=== PATIENT | female | born 1995 | race Hispanic/Latino ===

== ENCOUNTER 2024-11-17 02:14 | Emergency (ER) | payer SELFPAY ==
[~2024-11-17] VITALS: Ht 160 cm; Wt 90.7 kg
[2024-11-17] MEDS: 0.9%NACL 1000ML 1,000 ML IV ONE (02:52)
[2024-11-17 03:02] LABS: IMMATURE GRANULOCYTE ABSOLUTE 0.09 K/uL (0-1); NUCLEATED RED BLOOD CELLS 0.0 % (0.0-0.19); PLATELET COUNT (AUTO) 232 K/uL (130-400); RED BLOOD CELL COUNT(AUTO) 4.23 MIL/uL (4.00-5.50); RED CELL DISTRIBUTION WIDTH 18.8 % (11.0-15.5); WHITE BLOOD COUNT (AUTO) 14.2 K/uL (4.8-10.8)
[2024-11-17 03:08] LABS: CREATININE 0.7 mg/dL (0.5-1.0); GLOMERULAR FILTR. RATE CALC 120.0 mL/min (>90); GLUCOSE,RANDOM 119.0 mg/dL (70-105); SODIUM SERUM 138.0 mmol/L (136-145); UREA NITROGEN, BLOOD 7.0 mg/dL (7-18)
[2024-11-17 03:19] LABS: HCG,QUANTITATIVE 0.0 mIU/mL (0-5)
[2024-11-17 03:59] LABS: ADD UA MICROSCOPIC YES; APPEARANCE,URINE CLOUDY (CLEAR); GLUCOSE, URINE (UA) NEGATIVE (NEGATIVE); LEUKOCYTE ESTERASE ,URINE 500 Leu/uL (NEGATIVE); NITRATE,URINE NEGATIVE (NEGATIVE); OCCULT BLOOD,URINE MODERATE (NEGATIVE)
[2024-11-17 04:03] LABS: SQUAMOUS EPITHELIAL CELL,UR MANY /HPF (0-2)
[2024-11-17] MEDS ORDERED: NITR100C4 PO (04:12)
--- NOTE | 2024-11-17 04:13 | ERN ---
ED Note History of Present Illness Stated Complaint: ABD PAIN Chief Complaint: Abdominal Pain Time Seen by MD: 02:23 Dictation: This is a 28-year-old obese female who presented to the emergency room with complaints of epigastric pain nausea and vomitings and diarrhea for the past 2 d ays. She stated that she had a cholecystectomy in the past. No other family members are sick in the house. She has been eating food made by her grandmother. No hematemesis or melena. No fever chills or rigors periods Temperature 97.9 pulse 82 respirations 20 blood pressure 120/98 with a pulse oximetry of 99% on room air Allergies: Coded Allergies: No Known Allergies (Unverified Allergy, Unknown, 11/17/24) Home Meds Active Scripts Nitrofurantoin Monohyd/M-Cryst (Macrobid 100 mg Capsule) 100 Mg Capsule, 1 CAP PO BID for 7 Days, #14 CAP 0 Refills Prov:VALE NARVAEZ MD 11/17/24 Past Medical History Past Medical History: No Pertinent History Surgical History: Cholecystectomy Family History: Negative Social History: Negative RN Note Reviewed/Agreed w/PFSH: Yes Review of System Dictation Constitutional: Negative for fever,chills, and weight loss Eyes: Negative for injury, pain,redness, and discharge ENT: Negative for injury,pain or swelling Cardiovascular: Negative for chest pain, palpitations, and edema Respiratory: Negative for shortness of breath, cough, and wheezing, Abdomen/GI: Positive for epigastric abdominal pain, nausea, vomiting, diarrhea, denied constipation Back: Negative for injury and pain : Negative for injury, bleeding and discharge MS/Extremity: Negative for injury and deformity Skin: Negative for rash, and discoloration Neuro: Negative for headache, weakness, numbness, tingling, and seizure Psych: Negative for suicide ideation, homicidal ideation, and hallucinations Initial Vital Sign VS Vital Signs Date Time Temp Pulse Resp B/P (MAP) Pulse Ox O2 Delivery O2 Flow Rate FiO2 11/17/24 02:15 97.9 82 20 120/98 99 Room Air 11/17/24 03:04 0 21 Physical Exam Dictation General: awake, alert, NAD morbidly obese Head/Face: Normocephalic, atraumatic Eyes: PERRL, EOMI, vision at baseline ENT: oral cavity clear, TMs clear, no signs of infection Neck: Trachea midline, supple, no nuchal rigidity Cardiovascular: RRR, normal S1/S2, No MRGs, no JVD Respiratory: CTAB, no respiratory distress, No rales or wheezes Abdomen: Soft, tenderness to palpation in the epigastric area, non-distended, normal bowel sounds, no guarding or rebound. Skin: Warm, dry, normal turgor, no rash MS/Extremity: Pulses equal, no cyanosis, neurovascular intact, FROM Neuro: COAx4, GCS 15, strength 5/5, CN 2-12 intact, normal cerebellar exam, normal gait, Psych: Normal behavior, mood, and affect normal Extremities-trace edema without any palpable cords, Homans sign is negative Results (Laboratory/Radiology) Laboratory/Radiology Laboratory Tests Test 11/17/24 02:45 11/17/24 03:51 White Blood Count 14.2 K/uL (4.8-10.8) H Red Blood Count 4.23 MIL/uL (4.00-5.50) Hemoglobin 11.3 g/dL (12.0-16.0) L Hematocrit 35.5 % (36-48) L Mean Corpuscular Volume 83.9 fL (79-99) Mean Corpuscular Hemoglobin 26.7 pg (27.0-33.0) L Mean Corpuscular Hemoglobin Concent 31.8 g/dL (32.0-36.0) L Red Cell Distribution Width 18.8 % (11.0-15.5) H Platelet Count 232 K/uL (130-400) Mean Platelet Volume 10.0 fL (7.5-10.5) Immature Granulocyte % (Auto) 0.6 % (0-1) Neutrophils (%) (Auto) 78.9 % (40.0-77.0) H Lymphocytes (%) (Auto) 14.1 % (21.0-51.0) L Monocytes (%) (Auto) 4.9 % (3.0-13.0) Eosinophils (%) (Auto) 1.3 % (0.0-8.0) Basophils (%) (Auto) 0.2 % (0.0-5.0) Neutrophils # (Auto) 11.2 K/uL (1.8-7.7) H Lymphocytes # (Auto) 2.0 K/uL (1.0-4.8) Monocytes # (Auto) 0.7 K/uL (0.1-1.0) Eosinophils # (Auto) 0.18 K/uL (0.00-0.70) Basophils # (Auto) 0.03 K/uL (0.00-0.20) Absolute Immature Granulocyte (auto 0.09 K/uL (0-1) Nucleated Red Blood Cells 0.0 % (0.0-0.19) Red Blood Cell Morphology See comments Sodium Level 138 mmol/L (136-145) Potassium Level 3.3 mmol/L (3.5-5.1) L Chloride Level 103 mmol/L (101-111) Carbon Dioxide Level 23 mmol/L (21-32) Blood Urea Nitrogen 7 mg/dL (7-18) Creatinine 0.7 mg/dL (0.5-1.0) Glomerular Filtration Rate Calc 120 mL/min (>90) Random Glucose 119 mg/dL (70-105) H Total Calcium 8.4 mg/dL (8.5-10.1) L Lipase 27 U/L (16-77) Human Chorionic Gonadotropin, Quant 0 mIU/mL (0-5) Urine Color LIGHT-YELLOW (YELLOW) Urine Appearance CLOUDY (CLEAR) H Urine pH 6.0 (5.0-8.0) Urine Specific [place] 1.024 (1.001-1.031) Urine Protein NEGATIVE mg/dL (NEGATIVE) Urine Glucose (UA) NEGATIVE mg/dL (NEGATIVE) Urine Ketones NEGATIVE mg/dL (NEGATIVE) Urine Occult Blood MODERATE (NEGATIVE) H Urine Nitrate NEGATIVE (NEGATIVE) Urine Bilirubin NEGATIVE mg/dL (NEGATIVE) Urine Urobilinogen 0.2 mg/dL (0.2-1.0) Urine Leukocyte Esterase 500 Mesfin/uL (NEGATIVE) H Urine RBC 11-25 /HPF (0-1) H Urine WBC 11-25 /HPF (0-1) H Urine Squamous Epithelial Cells MANY /HPF (0-2) Urine Bacteria MOD /HPF (None Seen) Labs Reviewed?: Yes ED Course ED Course Orders Procedure Category Date Status Time Cbc With Differential LAB 11/17/24 Complete 02: Basic Metabolic Panel LAB 11/17/24 Complete 02: Hcg,Quantitative LAB 11/17/24 Complete 02: Urinalysis Profile LAB 11/17/24 Complete 02:27 0.9%Nacl 1000ml (Ns PHA 11/17/24 Complete 1000ml) 02:30 Morphine 2mg Syg PHA 11/17/24 Complete (Morphine 2mg Syg) 02:30 Ondansetron 4mg Inj PHA 11/17/24 Complete (Zofran 4mg Inj) 02:30 Pantoprazole 40mg Inj PHA 11/17/24 Complete (Protonix 40mg Inj 02:30 Lipase LAB 11/17/24 Complete 02:27 Hydromorphone 0.5mg PHA 11/17/24 Complete Syg (Dilaudid 0.5mg 03:30 Culture Urine GAYATHRI 11/17/24 In Process 04:00 Current Medications Medications (Trade) Dose Ordered Sig/Lewis Route PRN Reason Start Time Stop Time Status Last Admin Dose Admin Hydromorphone HCl (DiLAUDid 0.5MG INJ) 0.5 mg ONCE ONCE IVP 11/17/24 03:30 11/17/24 03:31 DC 11/17/24 03:29 Morphine Sulfate (morPHINE 2MG SYG) 2 mg ONCE ONCE IVP 11/17/24 02:30 11/17/24 02:32 DC 11/17/24 02:52 Ondansetron HCl (zoFRAN 4MG INJ) 4 mg ONCE ONCE IVP 11/17/24 02:30 11/17/24 02:32 DC 11/17/24 02:52 Pantoprazole Sodium (PROTonix 40MG INJ) 40 mg ONCE ONCE IVP 11/17/24 02:30 11/17/24 02:32 DC 11/17/24 02:51 Sodium Chloride 1,000 ml @ 0 mls/hr ONCE ONCE IV 11/17/24 02:30 11/17/24 02:32 DC 11/17/24 02:52 Vital Signs Date Time Temp Pulse Resp B/P (MAP) Pulse Ox O2 Delivery O2 Flow Rate FiO2 11/17/24 03:55 81 18 127/73 98 Room Air* 0 11/17/24 03:04 98.1 72 18 124/76 98 Room Air* 0 11/17/24 02:15 97.9 82 20 120/98 99 Room Air We will perform diagnostic labs, and administer medications according to the patient's complaint. Once the results are available, will review and personally interpreted the labs to rule out any acute life-threatening emergency the trach require immediate intervention and treatment. I will then re-evaluate the patie nt after treatment and diagnostic exams have return to determine whether the patient requires any further testing, can safely be discharged home or need further admission to hospital for additional treatment and evaluation. 4:09 a.m. CBC showed a white count of 14.2 hemoglobin 11.3. BNP 7 significant for a potassium of 3.3 and lipase is 27. Urine test is negative urinalysis is abnormal with very high leuko esterase. 4:37 a.m. admits to feeling significantly improved and I updated her on all the lab results and UTI and a trial of antibiotics. She verbalized full understanding Medical Decision Making MDM Differential diagnosis: Gastroenteritis, food poisoning, gastritis, peptic ulcer disease, marijuana induced GI symptoms Rationale: Tests considered and ordered secondary to shared decision making include: Previous outside records reviewed: Old ER visits. Risk of complication and/or morbidity or mortality of patient management: None Medications-Per medication reconciliation Need for hospitalization: Patient does not meet criteria for hospitalization. Need for emergency major/minor surgery: No There are no social concerns with this patient. Prescription drug management Prescriptions will include symptomatic care Patient's prior external medical records from other ER visits were reviewed by me as indicated. Prior testing and results from previous visits were reviewed. Prior tests were taken into account with medical decision making and resource utilization, independent historian/historians were used to obtain complete medical history. I independently interpreted the test that were performed, results were reviewed by me and considered findings on radiology if ordered. Medical management and examination interpretation discussions were had by me with other qualified healthcare professionals as indicated for the patient's care. Problem List Problem List: (1) Gastroenteritis (2) Hypokalemia (3) UTI (urinary tract infection) DX & DISP Disposition: Discharge Departure Impression: Primary Impression: Gastroenteritis Additional Impressions: Hypokalemia, UTI (urinary tract infection) Condition: Stable Scripts Ondansetron (Ondansetron Odt) 4 Mg Tab.rapdis 4 MG PO Q6HPRN PRN for nausea, #16 TAB 0 Refills Prov: VALE NARVAEZ MD 11/17/24 Nitrofurantoin Monohyd/M-Cryst (Macrobid 100 mg Capsule) 100 Mg Capsule 1 CAP PO BID for 7 Days, #14 CAP 0 Refills Prov: VALE NARVAEZ MD 11/17/24 Additional Instructions: Patient and the caregiver have been informed of all the diagnostic tests and the imaging conducted during the today's visit to the emergency room and has verbalized understanding of the results I have personally reviewed and interpreted all diagnostic exams performed here in the ER today as well as the vital signs documented by the nursing staff. The patient is now being discharged to home and should follow up with the primary care physician or the specialist as directed by the ER staff. Follow-up with primary care provider in 1 to 2 days. Take medications as directed here in the emergency room. Okay to continue home medications unless otherwise discussed during your visit in the emergency room today. Return to your nearest emergency room if symptoms worsen or if there is no improvement. Call 911 if you need immediate assistance. Take Tylenol or Motrin [id number] as needed and if no contraindications are present. Increase oral hydration. A wound culture or urine culture was ordered here in the emergency room department please follow-up with primary care provider and advise them to get repeat ports from our facility. If you had any Prince wrap/splints that were applied here, please do not remove them until you see your primary care or specialty. Referrals: NONE (PCP) VALE NARVAEZ MD Nov 17, 2024 04:13
[2024-11-17] MEDS ORDERED: ONDA-243 PO (04:37)
[2024-11-17 04:52] VITALS: BP 124/79; PULSE 88; RESP 18; TEMP 98.3; O2SAT 98
== END 2024-11-17 05:05 | disposition home or self-care (01) ==
LOC: EDH 02:14
DX: K52.9 Noninfective gastroenteritis and colitis, unspecified (principal); E87.6 Hypokalemia; N39.0 Urinary tract infection, site not specified; R10.2 Pelvic and perineal pain; Z90.49 Acquired absence of other specified parts of digestive tract
CPT/HCPCS: 99284; 96374; 96375; 96361; 80048; 84702; 83690; 85025; 87086; 81001; 36415; J2270; J7030; J2405; J2470; J1171